=== PATIENT | female | born 1935 | race African-American/Black ===

== ENCOUNTER 2016-09-14 22:54 | Emergency (ER) | payer OTHER ==
[~2016-09-14] VITALS: Ht 157.5 cm; Wt 108.9 kg
[~2016-09-14 22:54] MED LIST: BACTRIM-DS1 EA ORAL; BENADRYL25 MG ORAL; DIOVAN160 MG ORAL; DIOVAN80 MG ORAL; HYDRALAZINE HCL25 M1 ORAL; LEVOTHYROXINE50 MCG ORAL; LIDOCAINE700 M1 TP; LIDODERM700 M1 TDERMAL; LOSARTAN POTASS50 MG ORAL; MIRALAX17 G2 ORAL; MULTI-DELYN237 ML ORAL; MULTIVITAMINS1 EAC2 ORAL; NIFEDIPINE ER90 M2 ORAL; NIFEDIPINE XL30 M1 ORAL; SYNTHROID25 MCG ORAL; SYNTHROID75 MCG ORAL; TYLENOL325 MG ORAL; VENLAFAXINE HCL75 MG ORAL; VENTOLIN HFA18 GM INH; ZYRTEC10 MG ORAL
--- NOTE | 2016-09-15 00:32 | Emergency Room Report ---
History of Present Illness General Chief Complaint: Pain Source: EMS Present Illness HPI 80 YO F [place] with "pain everywhere" after fall out of wheelchair 10 days ago. Mostly pain to right hip, right leg and right lower back. States difficulty ambulating, "muscular spasms" to leg. Review of EMR shows admission April 2016 for ?urosepsis. Has history of RA, CKD, anemia, chronic bronchitis. Allergies: Coded Allergies: PENICILLINS (Verified Allergy, Severe, rash/anaphylaxis, 05/12/16) rash/anaphylaxis per [facility] note CIPROFLOXACIN (Verified Allergy, Unknown, 05/11/16) CODEINE (Verified Allergy, Unknown, 05/11/16) NORTRIPTYLINE (Unverified Allergy, Unknown, 05/12/16) PROPRANOLOL (Verified Allergy, Unknown, 05/11/16) ROSUVASTATIN (Verified Allergy, Unknown, 05/11/16) TETANUS VACCINES AND TOXOID (Verified Allergy, Unknown, 05/11/16) VERAPAMIL (Verified Allergy, Unknown, 05/11/16) Patient History Past Medical History: see triage record, old chart reviewed Past Surgical History: none Pertinent Family History: none Social History: Denies: alcohol use, drug use, smoking Now: No Immunizations: UTD Reviewed Nursing Documentation: PMH: Agreed, PSxH: Agreed Nursing Documentation-PMH Past Medical History: No History, Except For Hx Hypertension: Yes Hx Asthma: Yes Physical Exam Vital Signs Date Time Temp Pulse Resp B/P Pulse Ox O2 Delivery O2 Flow Rate FiO2 09/14/16 22:58 100 16 146/88 99 Room Air Sp02 EP Interpretation: reviewed, normal General Appearance: normal inspection, well appearing, no apparent distress, alert, GCS 15, non-toxic Head: normocephalic, atraumatic Eyes: bilateral eye EOMI, bilateral eye PERRL ENT: normal ENT inspection, hearing grossly normal, normal voice Neck: normal inspection, full range of motion, supple, no bony tend Respiratory: normal inspection, no respiratory distress, no retraction, no accessory muscle use, no wheezing, crackles Cardiovascular #1: regular rate, rhythm, no edema Gastrointestinal: normal inspection, normal bowel sounds, non tender, soft, no guarding, no hernia Genitourinary: no CVA tenderness Musculoskeletal: normal inspection, back normal, normal range of motion, non- tender, no calf tenderness, pelvis stable, Meir's Sign negative, other - Bilateral hyperasthesia to both hips. No lower extremity shortening or rotation Neurologic: normal inspection, alert, oriented x3, responsive, community planner III-XII nml as tested, normal gait, speech normal Psychiatric: normal inspection, judgement/insight normal, mood/affect normal Skin: normal inspection, normal color, no rash, warm/dry Medical Decision Making Medicare Attestation I Jose A Mcnally MD hereby attest that the medical record entry for date of service, 08/16/16 accurately reflects signatures/notations that I made in my capacity as MD when I treated/diagnosed the above listed Medicare beneficiary. I attest that this information is true, accurate and complete to the best of my knowledge. I understand that any falsification, omission, or concealment of material fact may subject me to administrative, civil, or criminal liability. This patient warrants hospital admission for extreme of age and has a condition that cannot be treated as outpatient. Diagnostic Impression: Primary Impression: Weakness Additional Impressions: Leukocytosis Qualified Codes: D72.829 - Elevated white blood cell count, unspecified Cough CKD (chronic kidney disease) Qualified Codes: N18.9 - Chronic kidney disease, unspecified Rhabdomyolysis Qualified Codes: M62.82 - Rhabdomyolysis ER Course 80 YO F with "whole body pain" after fall 10 days prior. VSS. Afebrile No obvious signs of trauma. PLAN Basic labs, CXR, Hip/pelvis Xray, analgesia, Reassess EKG Diagnostic Results Rate: normal Rhythm: NSR ST Segments: no acute changes Other Impression incomplete RBBB ASA given to the pt in ED: No Rhythm Strip Diag. Results EP Interpretation: yes Rate: 92 Rhythm: NSR, no PVC's, no ectopy Chest X-Ray Diagnostic Results EP Interpretation: Yes Findings: no consolidation, no effusion, no pneumothorax, no acute cardiopulmonary disease Number of Views: 1 Other X-Ray Diagnostic Results Other X-Ray Diagnostic Results : X-Ray Ordered: AP pelvis EP Interpretation: Yes Findings: no fractures, no dislocation, no soft tissue swelling Other Impression Right hip ED review 2 views No acute fracture, dislocation, soft tissue swelling Left hip ED review 2 views No acute fracture, dislocation, soft tissue swelling Reevaluation Time: 02:30 Last Vital Signs Date Time Temp Pulse Resp B/P Pulse Ox O2 Delivery O2 Flow Rate FiO2 09/14/16 22:58 100 16 146/88 99 Room Air Status: improved Reevaluation Impression Labs: Leuks 18k. H&H stable. Elevated serumCr is baseline. Elevated CK CXR: No obvious PNA - similar to CXR in April no obvious UTI A: Will tx empirically for CAP with Abx - no admission to hospital in last 3 months Patient feels better after analgesia IVF given for mild rhabdo pelvis/hip Xray negative for acute trauma Endorsed To Dr Rodas at [facility] at 2am Transferred at 330am Disposition: ADMITTED INPATIENT Condition: Serious Referrals: [facility],REFERRING (PCP) JOSE A MCNALLY M.D. Sep 15, 2016 00:32
[2016-09-15] MEDS ORDERED: Morphine Sulfate 4mg/ml Inj IVP ONE (00:45)
[2016-09-15 01:00] VITALS: BP 88/64
[2016-09-15 01:05] LABS: MEAN CORPUSCULAR HEMOGLOBIN 28.4 PG (27.0-31.0); MEAN CORPUSCULAR HGB CONC 32.6 G/DL (32.0-36.0); MEAN CORPUSCULAR VOLUME 87 FL (80-99); MEAN PLATELET VOLUME 5.8 FL (6.5-10.1); PLATELET COUNT 488 K/UL (150-450); RED BLOOD COUNT 3.57 M/UL (4.20-5.40); RED CELL DISTRIBUTION WIDTH 13.9 % (11.6-14.8); WHITE BLOOD COUNT 18.5 K/UL (4.8-10.8)
[2016-09-15 01:15] LABS: TROPONIN I < 0.30 ng/mL (<=0.30)
[2016-09-15 01:18] LABS: ALANINE AMINOTRANSFERASE 21 U/L (3-33); ALBUMIN/GLOBULIN RATIO 0.7 (1.0-2.7); ANION GAP 17 (5-15); ASPARTATE AMINO TRANSFERASE 48 U/L (5-40); CALCIUM 9.8 mg/dL (8.6-10.2); CARBON DIOXIDE 26 mEQ/L (20-30); CHLORIDE 92 mEQ/L (98-107); HEMOLYSIS 96; POTASSIUM 4.5 mEQ/L (3.4-4.9); SODIUM 135 mEQ/L (135-145); TOTAL PROTEIN 7.5 g/dL (6.6-8.7)
[2016-09-15 01:28] LABS: CKMB 6.5 ng/mL (< 3.8)
[2016-09-15 01:33] LABS: ANISOCYTOSIS 1+; BAND NEUTROPHILS % (MANUAL) 0 % (0-8); BASOPHILS % (MANUAL) 2 % (0-2); EOSINOPHILS % (MANUAL) 3 % (0-3); HYPOCHROMASIA 1+; LYMPHOCYTES % (MANUAL) 9 % (20-45); NEUTROPHILS % (MANUAL) 82 % (45-75); PLATELET ESTIMATE ADEQUATE; PLATELET MORPHOLOGY NORMAL; TOTAL CELLS COUNTED 100
[2016-09-15 02:02] LABS: APPEARANCE,URINE SLIGHTLY CLOUDY; KETONES,URINE NEGATIVE (NEGATIVE); LEUKOCYTE ESTERASE ,URINE 3+ (NEGATIVE); NITRITE,URINE NEGATIVE (NEGATIVE); PH,URINE 5 (4.5-8.0); PROTEIN,URINE 3+ (NEGATIVE); UROBILINOGEN,URINE 1 MG/DL (0.0-1.0)
[2016-09-15 02:20] LABS: BACTERIA,URINE MODERATE /HPF; SQUAMOUS EPITHELIAL CELL,UR FEW /LPF (NONE/OCC); WBC,URINE 20-30 /HPF (0 - 2)
[2016-09-15] MEDS ORDERED: Azithromycin 500 MG in NS 250 ML IVPB ONE (02:30)
[2016-09-15 03:00] VITALS: BP 94/66
[2016-09-15] MEDS ORDERED: Tubing IV Cassette IV ONE (03:45)
[2016-09-15] MEDS ORDERED: NS 250 ML ONE (03:45)
[2016-09-15] MEDS ORDERED: Azithromycin Inj IV ONE (03:45)
[2016-09-15 04:01] VITALS: BP 94/66
--- NOTE | 2016-09-15 09:55 | Diagnostic Imaging Report ---
Indication: PAIN Technique: One view of the chest Comparison: 05/11/2016 Findings: Lungs and pleural space are clear. Heart size is normal. There is tortuous ectatic and calcified. The upper mediastinum is unremarkable. Findings are unchanged Impression: No acute process
--- NOTE | 2016-09-15 09:58 | Diagnostic Imaging Report ---
Indication: PAIN Technique: One view of the pelvis, 2 views of both hips Comparison: 05/12/2016 Findings: Exam is limited due to patient body habitus and suboptimal positioning. No definite acute fractures. No definite dislocations. Joint spaces are preserved. 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 There is a Baer catheter present within the pelvis. Impression: No definite acute bony trauma. However, given inherent limitations of the exam, a nondisplaced fracture can easily be occult. Consider cross-sectional imaging if there is high clinical suspicion
--- NOTE | 2016-09-15 15:01 | Cardiology Report ---
APPROVED REPORT EKG Measurement Heart [id number] VT [id number] Normal sinus rhythm Incomplete right bundle branch block Minimal voltage criteria for LVH, may be normal variant Borderline ECG
== END 2016-09-15 04:07 | disposition short-term general hospital (02) ==
LOC: EDUNIT# 22:54 → EDBD 22:54 → EMR 23:30
DX: R53.1 Weakness (principal); D72.829 Elevated white blood cell count, unspecified; R05 Cough; M62.82 Rhabdomyolysis; I12.9 Hypertensive chronic kidney disease with stage 1 through stage 4 chronic kidney disease, or unspecified chronic kidney disease; N18.9 Chronic kidney disease, unspecified; J45.909 Unspecified asthma, uncomplicated; Z88.0 Allergy status to penicillin; Z88.7 Allergy status to serum and vaccine; Z88.6 Allergy status to analgesic agent; Z88.8 Allergy status to other drugs, medicaments and biological substances
CPT/HCPCS: 36415; 51702; 71010; 72170; 73502; 80053; 81003; 82550; 82553; 84484; 85007; 85025; 87086; 87181; 93005; 96374; 96375; 99284; J0456; J0696; J2270; J7050